=== PATIENT | male | born 1940 ===

== ENCOUNTER 2024-11-27 13:03 | Outpatient (RCR) | payer MEDICARE, OTHER, SELFPAY | END 2024-11-27 23:59 | disposition home or self-care (01) | LOC: RPT 13:03 | PROVIDERS: ATTENDING PHYSICIAN Family Medicine | DX: M54.16 Radiculopathy, lumbar region (principal); Z73.6 Limitation of activities due to disability; M25.561 Pain in right knee; R26.2 Difficulty in walking, not elsewhere classified; R26.89 Other abnormalities of gait and mobility; E11.40 Type 2 diabetes mellitus with diabetic neuropathy, unspecified; W18.39XD Other fall on same level, subsequent encounter | CPT/HCPCS: 97110; 97162 ==

== ENCOUNTER 2024-12-18 13:12 | Outpatient (RCR) | payer OTHER, SELFPAY | END 2024-12-18 23:59 | disposition home or self-care (01) | LOC: RPT 13:12 | PROVIDERS: ATTENDING PHYSICIAN Family Medicine | DX: M54.16 Radiculopathy, lumbar region (principal); Z73.6 Limitation of activities due to disability; M25.561 Pain in right knee; R26.2 Difficulty in walking, not elsewhere classified; R26.89 Other abnormalities of gait and mobility; E11.40 Type 2 diabetes mellitus with diabetic neuropathy, unspecified; W18.39XD Other fall on same level, subsequent encounter | CPT/HCPCS: 97110; 97164 ==